=== PATIENT | male | born 1990 | race Caucasian/White ===

== ENCOUNTER 2017-10-13 11:15 | Day surgery (SDC) | payer MEDICAID ==
[~2017-10-13] VITALS: Ht 188 cm; Wt 97.4 kg
[2017-10-13 11:38] VITALS: BP 138/95
[2017-10-13] MEDS ORDERED: LISI10TA4 PO (11:53)
[2017-10-13] MEDS ORDERED: RIVA20TA PO (11:53)
[2017-10-13 13:34] VITALS: BP 138/95
[2017-10-13 13:45] VITALS: BP 116/62
[2017-10-13 14:00] VITALS: BP 144/80
[2017-10-13 14:17] VITALS: BP 132/82
[2017-10-13 14:30] VITALS: BP 145/84
[2017-10-13 14:52] LABS: BASOPHILS % (AUTO) 0.7 % (0-1); EOSINOPHILS # (AUTO) 0.1 X10'3 (0-0.9); EOSINOPHILS % (AUTO) 2.1 % (0-6); HEMATOCRIT 44.3 % (42.0-52.0); HEMOGLOBIN 15.4 g/dl (14.0-17.9); LYMPHOCYTES # (AUTO) 1.8 X10'3 (1.1-4.8); LYMPHOCYTES % (AUTO) 25.7 % (21-51); MEAN CORPUSCULAR HEMOGLOBIN 32.9 PG (27.0-31.0); MEAN CORPUSCULAR HGB CONC 34.7 % (33.0-36.5); MEAN PLATELET VOLUME 8.1 FL (7.4-10.4); MONOCYTES # (AUTO) 0.4 X10'3 (0-0.9); NEUTROPHILS # (AUTO) 4.8 X10'3 (1.8-7.7); NEUTROPHILS % (AUTO) 66.5 % (42-75); PLATELET COUNT 275 X10'3 (140-440); RED BLOOD COUNT 4.66 X10'6 (4.70-6.10); RED CELL DISTRIBUTION WIDTH 13.1 % (11.5-14.5); WHITE BLOOD COUNT 7.2 X10'3 (4.5-11.0)
== END 2017-10-13 15:26 | disposition home or self-care (01) ==
LOC: SSTAY O 11:15
PROVIDERS: ATTEND Internal Medicine Hematology & Oncology
DX: D75.1 Secondary polycythemia (principal)
CPT/HCPCS: 36415; 38221; 85025; A6449